=== PATIENT | male | born 1945 | race Caucasian/White ===

== ENCOUNTER 2016-09-12 16:00 | Inpatient (IN) | payer OTHER, MEDICARE ==
[~2016-09-12] VITALS: Ht 182.9 cm; Wt 72.2 kg
[2016-09-12 16:14] VITALS: BP 123/86; PULSE 54; RESP 16; O2SAT 92
[2016-09-12] MEDS ORDERED: 0.9% Sodium Chloride 1,000 ML IV ONE (17:42)
[2016-09-12] MEDS ORDERED: Piperacillin-Tazo 3.375 Gm Inj 3.375 GM in Dextrose 5% Minibag Plus 50 ML IV ONE (17:45)
--- NOTE | 2016-09-12 17:53 | ED.REPORT ---
HPI- Male Date of Service September 12, 2016 ED Provider: Micheal Frost MD Patient is a 71 year old male who presents to the ED after being referred by [facility] (Dr. Bennett) after being diagnosed with acutely symptomatic colovesical fistula to be admitted by hospitalist with a general surgery consult. Dr. Bennett already spoke with Александр Vivas. Associated symptoms include dysuria, fever (last fever 5 days ago, highest 103), and fecal matter coming out of his urethra. He denies vomiting, flank pain, or any other symptoms. He has been taking Azo to treat his symptoms. He was seen at [facility] 5 days ago. He has reduced his daily medications to bisoprolol, benzamine, amlodipine, and Vicodin. He was started on cefuroxime on 09/07. Nursing Notes Stated Complaint: POSS BLADDER/COLON INFECTION Chief Complaint: General Complaint Nursing Notes Reviewed: Yes Allergies: Coded Allergies: No Known Allergies (Unverified , 09/12/16) Scheduled Amlodipine (Amlodipine) 5 Mg Tablet 5 MG PO TID Benazepril (Benazepril) 10 Mg Tablet 10 MG PO TID Bisoprolol Fumarate (Bisoprolol Fumarate) 5 Mg Tablet 5 MG PO QAM Cefuroxime Axetil (Cefuroxime) 500 Mg Tablet 500 MG PO BIDWM Clonidine (Clonidine) 0.1 Mg Tablet 0.3 MG PO HS Phenazopyridine (Azo Standard) 97.5 Mg Tablet 195 MG PO Q2H TAKING Q2H SCHEDULED FOR PAIN W/ URINATION Pramipexole Dihydrochloride (Mirapex) 0.125 Mg Tablet 0.375 MG PO HS Zolpidem ER (Zolpidem ER) 12.5 Mg Tablet 12.5 MG PO HS SCHEDULED Scheduled PRN Carisoprodol (Carisoprodol) 350 Mg Tablet 350 MG PO HS PRN PRN Insomnia Dexamethasone Liquid (Dexamethasone Liquid) 0.5 Mg/5 Ml Elixir 0.5 MG PO DAILY PRN PRN MOUTH SORES SWISH AND SPIT Doxepin (Doxepin) 25 Mg Capsule 25 MG PO HS PRN PRN For Insomnia Hydrocodone-Acetaminophen 5-325 mg (Hydrocodone-Acetaminophen 5-325 mg) 1 Each Tablet 1 TABLET PO Q4H PRN PRN For Pain Metronidazole (Metronidazole Gel) 45 Gm Gel..gram. 1 APPLIC TOP DAILY PRN PRN ROSACEA TO TIP OF NOSE General Time Seen by MD: 17:41 Chief Complaint Other (Urinary problem) Hx Obtained From: Patient Arrived By: Walk-in Recent Healthcare: Recent doctor visit Past Medical History Past Medical History Notes: Dr. Nixon PCP Past Medical History Chronic back pain Reduced kidney function Recurrent bladder infections Reports: Hypertension, Denies: Asthma, COPD, Cancer, Congestive heart failure, Coronary artery disease , Diabetes mellitus, Stroke Past Surgical History colonoscopy with polyp removal Smoking History Never Smoker Ambulatory Status Independent Review of Systems Review of Systems Note: +fecal matter in urine Constitutional: Reports: Fever GI: Denies: Vomiting Male: Reports Dysuria, Denies Flank pain Complete sys rev & neg: except as marked. Physical Exam Initial Vital Signs Vital Signs (First) Date Time Temp Pulse Resp B/P Pulse Ox O2 Delivery O2 Flow Rate FiO2 09/12/16 16:14 37.0 54 16 123/86 92 Room Air General/Constitutional: Well-developed, Well-nourished Head / Eyes: Atraumatic, Normocephalic Neck: Full range of motion Respiratory: Breath sounds normal, Clear to auscultation, No respiratory distress Cardiovascular: Regular rate & rhythm, Heart sounds normal Abdomen / GI: Soft, Non-tender Skin: Warm, Dry Neurologic: Alert, Oriented, Nonfocal Psychiatric: Mood/affect normal, Behavior normal, Normal thought content Exam deferred Lower Extremity / Pelvis / MS: No edema Interpretation & Diagnostics Lab Results Interpretation Result Diagram: 09/12/16 1754 09/12/16 1754 Test 09/12/16 17:54 White Blood Count 6.5th/mm3 (3.8-10.1) Red Blood Count 4.99mil/mm3 (4.40-5.80) Hemoglobin 15.3g/dL (13.8-17.2) Hematocrit 46.6% (41.0-50.0) Mean Corpuscular Volume 93.4fL (81-100) Mean Corpuscular Hemoglobin 30.7pg (27.0-35.0) Mean Corpuscular Hemoglobin Concent 32.8% (32.0-37.0) Red Cell Distribution Width 15.1% (12.3-15.4) Platelet Count 266bil/L (150-400) Neutrophils (%) (Auto) 63.0% (40-74) Lymphocytes (%) (Auto) 20.3% (14-46) Monocytes (%) (Auto) 14.3% (4-12) Eosinophils (%) (Auto) 1.4% (0-5) Basophils (%) (Auto) 0.5% (0-3) Urine Color Dark yellow (YELLOW) Urine Appearance Cloudy (CLEAR,HAZY) Urine pH 7.0 (5.0-8.0) Urine Specific [place] 1.010 (1.003-1.035) Urine Protein 300mg/dL (NEG,TRACE) Urine Glucose (UA) 250mg/dL (NEGATIVE) Urine Ketones Tracemg/dL (NEGATIVE) Urine Occult Blood Large (NEGATIVE) Urine Nitrite Positive (NEGATIVE) Urine Bilirubin Moderate (NEGATIVE) Urine Ictotest Positive (Negative) Urine Urobilinogen 8.0mg/dL (NORMAL) Urine Leukocyte Esterase Large (NEGATIVE) Urine RBC 3-10/hpf (0-2) Urine WBC 6-10/hpf (0-5) Urine Epithelial Cells None/hpf (NONE-MOD) Urine Crystals None seen (NONE SEEN) Urine Bacteria Few/hpf (NONE-FEW) Urine Hyaline Casts None/lpf (NONE) Urine Granular Casts None seen (NONE SEEN) Urine Waxy Casts None seen (NONE SEEN) Urine Red Blood Cell Casts None seen (NONE SEEN) Urine White Blood Cell Casts None seen (NONE SEEN) Urine Mucus None seen (None Seen) Urine Trichomonas None seen (NONE SEEN) Urine Yeast None (NONE SEEN) Urinalysis Comment None Urine Culture Reflexed Indicated Sodium Level 138mEq/L (134-144) Potassium Level 3.8mEq/L (3.5-5.2) Chloride Level 99mEq/L (97-108) Carbon Dioxide Level 18mmol/L (18-29) Blood Urea Nitrogen 21mg/dL (8-27) Creatinine 1.15mg/dL (0.76-1.27) Estimat Glomerular Filtration Rate 66mL/min (>59) Glucose Level 78mg/dL (60-99) Lactic Acid Level 1.1mmol/L (0.4-2.0) Calcium Level 9.5mg/dL (8.5-10.1) Magnesium Level 1.9mg/dL (1.6-2.6) Total Bilirubin 0.5mg/dL (0.0-1.2) Aspartate Amino Transf (AST/SGOT) 27U/L (0-50) Alanine Aminotransferase (ALT/SGPT) 18U/L (0-44) Alkaline Phosphatase 58U/L (25-160) Troponin T < 0.010ug/L (0.0-0.011) Total Protein 7.0g/dL (6.4-8.4) Albumin 3.5g/dL (3.4-5.0) Lab Results Interpretation: XRAY CHEST: 1vw, portable, interp. by radiologist IMPRESSION: No acute process. Dictated by: Ramon Davies M.D. on 09/12/2016 at 18:42 Approved by: Ramon Davies M.D. on 09/12/2016 at 18:43 ECG Interpretation ECG Interpretation: Sinus rate 78 PVC Time: 18:17 Interpreted by: ED physician Re-Eval/Medical Decision Re-Evaluation/Progress : Time of Eval: 19:59 Re-Evaluation/Progress Note: Rechecked pt. Discussed plan for admission. Patient understands and agrees with plan. All questions addressed at this time. Consultation #1: Referral / Consult Name: Александр Vivas MD Consulted With: Surgeon Call Returned at: 19:48 Human Resources Advisor: Agrees with eval, Agrees with plan Note: Discussed pt case. Should contact hospitalist. Will consult. Consultation #2: Referral / Consult Name: Thiago Grissom MD Call Returned at: 19:51 Human Resources Advisor: Agrees with eval, Agrees with plan Note: Discussed pt case with GI. Pt may have clear liquids and should colon prep over night. Will consult. Consultation #3: Referral / Consult Name: Sabrina Solares DO Consulted With: Hospitalist Call Returned at: 20:04 Human Resources Advisor: Will see patient, Agrees with eval, Agrees with plan, Accepts admit Note: Discussed pt case. Accepts admit. Counseled Regarding: Diagnosis, Lab results, Need for admission Discharge & Departure Impression: Primary Impression: [place]-vesical fistula Disposition: ADMITTED TO HOSPITAL Discharge Condition All VS Reviewed: Yes Condition: Stable Referrals: OTHER,PHYSICIAN (PCP) Scribe Attestation Portions of this note were transcribed by Teo Tate. IDr. Frost personally performed the history, physical exam and medical decision-making; I reviewed and confirmed the accuracy of the information in the transcribed note. Signed by: Teo Tate 09/12/162007 Micheal Frost MD September 12, 2016 17:53 TEO TATE September 12, 2016 18:00
[2016-09-12 18:15] LABS: BASOPHILS % (AUTO) 0.5 % (0-3); EOSINOPHILS % (AUTO) 1.4 % (0-5); MONOCYTES % (AUTO) 14.3 % (4-12); Mean Corpuscular Hemoglobin 30.7 pg (27.0-35.0); Mean Corpuscular Volume 93.4 fL (81-100); Platelet Count 266 bil/L (150-400)
[2016-09-12 18:34] LABS: APPEARANCE,URINE CLOUDY (CLEAR,HAZY); COLOR,URINE DARK YELLOW (YELLOW); OCCULT BLOOD,URINE LARGE (NEGATIVE)
[2016-09-12 18:35] LABS: ICTOTEST,URINE POSITIVE (Negative)
[2016-09-12 18:38] VITALS: BP 124/61; PULSE 82; RESP 20; O2SAT 93
--- NOTE | 2016-09-12 18:46 | DRSVH ---
PROCEDURE: X-RAY CHEST ONE VIEW, PORTABLE ([id number]) INDICATIONS: sepsis TECHNIQUE: One view of the chest was acquired. COMPARISON: [facility], , CHEST 2 VIEW, 07/22/2016, 12:11. FINDINGS: Surgical changes and devices: None. Lungs and pleura: No pleural effusions or pneumothorax. Lungs are clear. Mediastinum: Mediastinal contours appear normal. Heart size is normal. Bones and chest wall: No suspicious bony lesions. Overlying soft tissues appear unremarkable. IMPRESSION: No acute process. Dictated by: Ramon Davies M.D. on 09/12/2016 at 18:42 Approved by: Ramon Davies M.D. on 09/12/2016 at 18:43
[2016-09-12 18:49] LABS: Magnesium 1.9 mg/dL (1.6-2.6)
[2016-09-12 18:58] LABS: TROPONIN T < 0.010 ug/L (0.0-0.011)
[2016-09-12] MEDS ORDERED: Phenazopyridine 97.5 mg Tablet PO ONE (19:55)
[2016-09-12] MEDS ORDERED: CEFU500T61 PO (20:08)
[2016-09-12] MEDS ORDERED: METR45GE11 TOP (20:08)
[2016-09-12] MEDS ORDERED: SOMA350 PO (20:09)
[2016-09-12] MEDS ORDERED: DEXA0.5E2 PO (20:09)
[2016-09-12] MEDS ORDERED: NC8176 PO (20:09)
[2016-09-12] MEDS ORDERED: HYDR-4003 PO (20:12)
[2016-09-12] MEDS ORDERED: DXPN25C PO (20:12)
[2016-09-12] MEDS ORDERED: PRAM0.122 PO (20:12)
[2016-09-12] MEDS ORDERED: ZOLP12.547 PO (20:12)
[2016-09-12] MEDS ORDERED: CLON0.1T PO (20:14)
[2016-09-12] MEDS ORDERED: PHEN97.5 PO (20:14)
[2016-09-12] MEDS ORDERED: BISO5TAB2 PO (20:14)
[2016-09-12] MEDS ORDERED: AMLO5TAB2 PO (20:14)
[2016-09-12] MEDS ORDERED: Alum-Mag Hydrox-Simeth 30 mL Suspension PO PRN (20:20)
[2016-09-12] MEDS ORDERED: Ondansetron 2 mg/mL 2 mL Inj IVPUSH PRN (20:20)
[2016-09-12] MEDS ORDERED: Polyethylene Glycol (PEG) 17 Gm Powder PO PRN (20:20)
[2016-09-12 20:40] VITALS: BP 132/59; PULSE 90; O2SAT 92
[2016-09-12] MEDS ORDERED: PEG/Electrolytes 4,000 mL Solution PO ONE (20:44)
[2016-09-12] MEDS ORDERED: Phenazopyridine 97.5 mg Tablet PO SCH ×2 (21:45→23:26)
--- NOTE | 2016-09-12 21:45 | PCM.HPMED ---
Subjective Date of Service September 12, 2016 Primary Provider: Admitting Physician: Primary Care Physician: Other,Physician Attending Physician: Admit Status: From the Emergency Department, Remote Telemetry Chief Complaint: possible bladder/colon infection History of Present Illness: Patient is a 71 year old male who presents to the ED after being referred by [facility] (Dr. Bennett) being diagnosed with acutely symptomatic colovesical fistula to be admitted for a general surgery consult/GI consultation. Dr. Bennett has already spoke with Dr. Александр Vivas. Associated symptoms include worsening dysuria over the past 5 days, fever (highest 103), and fecal matter coming out of his urethra. He denies vomiting, flank pain, chills or any other symptoms. He has been taking Azo to treat his symptoms. He was seen at [facility] 5 days ago, and was urged to contact his PCP (Dr. Francesco Nixon in [place]), who started patient's cefuroxime on 09/07. He has reduced his daily medications to bisoprolol, benzamine, amlodipine, and Vicodin. In the ED, vitals T37.2, P90, BP132/59, 92% on RA. Normal labs WBC 6.5, lactic acid 1.1. UA with positive nitrite, leukocytes, and occult blood. Dr. Moctezuma has been contacted and plans colonoscopy for tomorrow. Patient is being admitted for colonoscopy and further treatment for his fistula. Review of Systems: A comprehensive review of systems has been conducted with the patient and found to be negative except what is mentioned in the HPI. Allergies Coded Allergies: No Known Allergies (Unverified , 09/12/16) Home Medications Amlodipine 5 mg by mouth 3 times a day Benzagel 10 mg by mouth 3 times a day Bisoprolol fumarate 5 mg by mouth every morning Carisoprodol 350 mg by mouth at bedtime when necessary insomnia Cefuroxime 500 mg by mouth twice a day with meals Clonidine 0.3 mg by mouth at bedtime Dexamethasone liquid 0.5 mg per 5 mL elixir 0.5 mg by mouth daily when necessary for mouth sores swish and spit Doxepin 25 mg by mouth at bedtime when necessary for insomnia Metronidazole 45 g gel apply topical daily as needed for Nathaly fascia to tip of nose Phenazopyridine 195 mg by mouth every 2 hours for pain with urination Pramipexole 0.375 mg by mouth at bedtime Zolpidem 12.5 mg by mouth daily at bedtime Clonazepam 1.5 mg by mouth at bedtime as needed for insomnia (per patient report ) PMH Chronic back pain Reduced kidney function Recurrent bladder infections Hypertension, Surgical History colonoscopy with polyp removal 2 years ago Left knee replacement Cervical fusion Denies abdominal surgery Family History Both grandfathers of heart attack in her 80s Grandmother on paternal side with diabetes Social History Hx Alcohol Use: Yes (2x daily wine) Hx Substance Use: No Hx Tobacco Use: Yes Smoking Status: Former Smoker (20.-pack-year history quit 30 years ago) Living Arrangement: with Family (local resident near [place]) Exam Vital Signs Vital Sign - Last Date Time Temp Pulse Resp B/P Pulse Ox O2 Delivery O2 Flow Rate FiO2 09/12/16 18:38 36.9 82 20 124/61 93 Room Air Exam General: Awake and alert, in no acute distress HEENT: NC/AT, PERRL, no sclera icterus, moist mucous membranes Neck: Supple, Non-tender, Full range of motion, no lymphadenopathy LUNGS: CTAB CV: Regular with normal S1,S2, Heart sounds normal, Intact radial, dorsal pedis pulses ABD: Soft, non-tender, no guarding or rebound. hyperactive bowel tones Extremities: No edema Skin: Warm, Dry, No cyanosis Neuro: Alert, Oriented, Nonfocal Psychiatric: Mood/affect normal, Behavior normal, Normal thought content : Deferred Lab and Diagnostics Result Diagram: 09/12/16 1754 09/12/16 175 X-Rays, CTs and MRIs XRAY CHEST: 1vw, portable, interp. by radiologist IMPRESSION: No acute process. Dictated by: Ramon Davies M.D. on 09/12/2016 at 18:42 Approved by: Ramon Davies M.D. on 09/12/2016 at 18:43 12-lead ECG Sinus rate 78 PVC Time: 18:17 Interpreted by: ED physician Assessment & Plan Patient is a 71 year old male who presents to the ED after being referred by [facility] (Dr. Bennett) diagnosed with acutely symptomatic colovesical fistula to be admitted for general surgery consult. Dr. Bennett already spoke with Dr. Александр Vivas. He was started on cefuroxime on 09/07. Colovesical fistula, present on admission. Acute. - confirmed by (urology), Dr. Vivas (surgery) and Dr. Hodge ( GI) following - plans for coloscopy tomorrow, bowel prep started - clear liquid diet - UCx pending - Continue cefuroxime antibiotics - continue phenazopyridine as needed Chronic issues: Hypertension - Continue home meds; amlodipine and benazepril Chronic back pain - Continue home meds; Vicodin as needed Insomnia - Continue home meds; Ambien, clonidine and clonazepam when necessary Restless leg syndrome - Continue home meds; pramipexole and carisoprodol when necessary Rosacea Patient status: Patient was admitted under inpatient status with expected length of stay greater than to midnights due to severity of presenting symptoms , risk of adverse event, and complexity of treatment plan. Pain Evaluation: Adequate Pain Control GI Prophylaxis: Not indicated VTE Prophylaxis: Sub-Q Heparin (Unfractionated) Resuscitation Status: CPR: Attempt Resuscitation Attending Statement The patient was seen and examined together with house staff on 09/13/2016 and I agree with the history, exam and plan as outlined in the note above. Jona Ferreira DO September 12, 2016 20:15 Sabrina Solares September 13, 2016 04:31
[2016-09-12 21:50] VITALS: BP 147/99; PULSE 74; RESP 20; O2SAT 97
[2016-09-12] MEDS ORDERED: cloNIDine 0.1 mg Tablet PO SCH (22:37)
[2016-09-12] MEDS ORDERED: BISOPROLOL FUMARATE 5 MG PO SCH (22:38)
--- NOTE | 2016-09-12 23:35 | CONS ---
[address] [address] CONSULTATION REPORT PATIENT: CAMMY ROMEO : 1945 MR#: [id number] ADMIT: 09/12/2016 JOB ID: [id number] DATE OF SERVICE: 09/12/2016 CHIEF COMPLAINT: Colovesical fistula. HISTORY OF PRESENT ILLNESS: The patient is a 71-year-old male who was referred to the emergency department today due to a colovesical fistula. The patient has been having fevers and chills for the past week. This is followed by extreme pain with urination, changes in his urine stream, urgency of urination and frequency of urination, passing air in his urine and also having sediment or particulate matter in his urine over the past week. He denies any significant abdominal pain except for pain in his penis with urination. Due to this problem, he went to [facility] approximately four days ago and he was worked up with a CT scan of the abdomen and pelvis which suggests a colovesical fistula between the sigmoid colon and anterior dome of the bladder. His PCP Dr. Nixon started him on p.o. antibiotics after consultation with Dr. Bennett. The patient was seen by Dr. Bennett in the office today and I believe Dr. Bennett did a cystoscopy today and subsequently referred him to the emergency department. Urine cultures from September 07 grew out Proteus and E. coli greater than 100,000 organisms per cc. The patient is not toxic-appearing. I am not sure of the findings from today's cystoscopy. PAST MEDICAL HISTORY: Colonoscopy at [facility] approximately two or three years ago with findings of polyps and diverticulosis. Joint pains, broken right leg, left knee replacement, neck fusion surgery, hypertension and high cholesterol. MEDICATIONS: 1. Amlodipine. 2. Benazepril. 3. Bisoprolol. 4. Cefuroxime. 5. Clonidine. 6. Doxepin. 7. Mirapex. 8. Zolpidem. ALLERGIES: None. SOCIAL HISTORY: The patient lives in [place]. He is . He has a son and a daughter. He is retired. 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 He quit smoking 30 years ago. FAMILY HISTORY: Positive for heart disease and diabetes. REVIEW OF SYSTEM: Shows fevers and chills. No abdominal pain. No nausea, vomiting. He has been having extreme pain with urination and changes in his urination habits. PHYSICAL EXAMINATION: The patient is currently on the emergency department [facility] in no acute distress. His BMI is 23. Temperature is 36.9, blood pressure 134/61, pulse is 82, respirations 20. Head is normocephalic, atraumatic. There is no scleral icterus. Neck is supple. Heart is regular rate. Lungs are clear. Abdomen is nondistended. It is rather soft and no specific tenderness with deep palpation even in the suprapubic location. There is no left lower quadrant tenderness either. The patient points to his entire penis as the site of his discomfort when he urinates. Extremities show no clubbing and no cyanosis. Neurologically, he is awake and alert and follows commands. LABORATORY EXAMINATION: Today shows a white blood count of 6.5, hematocrit 46.6, platelet count is 266. Sodium is 138, potassium 3.8, creatinine 1.15, lactate is 1.1, total bilirubin is 0.5, albumin is 3.5. His urinalysis today shows positive urine nitrites and large leukocyte esterase. The CT scan report from [facility] dated September 08, 2016 demonstrates findings consistent with a colovesical fistula between the sigmoid colon and anterior dome of the bladder. Associated segmental wall thickening of the sigmoid colon and concentric wall thickening of the bladder are consistent with colitis and cystitis. Again, his urine cultures from September 07 show growth of Proteus and E. coli. ASSESSMENT: This is a 71-year-old male with a symptomatic colovesical fistula. The case has been discussed with the GI service who recommends having the patient undergo a bowel prep tonight in order to undergo a colonoscopy tomorrow. I have explained to the patient that he is likely to require surgical intervention in terms of a sigmoid resection with takedown of the colovesical fistula either with primary anastomosis or with a colostomy. The patient should remain on antibiotics for his urinary tract infection. I will follow the patient along with you.
[2016-09-13 00:05] VITALS: BP 152/91; PULSE 85; RESP 16; O2SAT 93
[2016-09-13] MEDS: HYDROcodone-APAP 5-325 mg Tablet PO PRN ×2 (00:13→06:01)
[2016-09-13] MEDS: Heparin 5,000 Unit/mL Inj SUBQ SCH ×2 (00:14→09:04)
[2016-09-13 03:12] VITALS: BP 121/77; PULSE 74; RESP 18; O2SAT 93
--- NOTE | 2016-09-13 05:16 | NUR ---
Admit to 1027 Arrived from ED at 2130, ambulated with steady gait to room, alert and fully oriented. Currently passing stool through urethra, reports extreme pain during urination. Pt has been taking phenazopyridine Q2 hours for penile pain; Md authorized no more than Q4 hour dosing with half amount for comfort. Taking colon prep with good output, finally able to report passing stool from rectum which has not happened for several days; concurrent reduction in stool through urethra. Pt has been NPO since stopping colon prep in case surgery will proceed today. Oriented to hospital routines, plan of care; hourly rounding ongoing.
[2016-09-13] MEDS: Phenazopyridine 97.5 mg Tablet PO SCH ×3 (06:01→12:30)
[2016-09-13 06:55] LABS: BASOPHILS % (AUTO) 0.4 % (0-3); EOSINOPHILS % (AUTO) 0.9 % (0-5); MONOCYTES % (AUTO) 14.5 % (4-12); Mean Corpuscular Hemoglobin 30.7 pg (27.0-35.0); Mean Corpuscular Volume 95.3 fL (81-100); NEUTROPHILS % (AUTO) 66.2 % (40-74); Platelet Count 282 bil/L (150-400)
[2016-09-13 08:04] LABS: INR 1.1 ratio
[2016-09-13] MEDS ORDERED: Sodium Chloride LOK Flush 10 mL Syringe IV SCH (08:30)
[2016-09-13] MEDS ORDERED: cefTRIAXone Inj 2,000 MG in Dextrose 5% Minibag Plus 50 ML IV SCH (08:30)
[2016-09-13 08:36] VITALS: BP 123/75; RESP 18; O2SAT 94
--- NOTE | 2016-09-13 09:42 | PCM.PNSURG ---
Subjective Visit Information: Reason for Visit Intracystic Fistula Surgery/Surgery Date Post-Op Day # Date of Admission: September 12, 2016 at 20:16 Hospital Day # Subjective: pt tolerated overnight bowel prep, waiting for colonoscopy; pain with urination seems a little better Objective Objective Awake in bed Abd: soft nontender Vital Sign- Last 8 Hours Date Time Temp Pulse Resp B/P Pulse Ox O2 Delivery O2 Flow Rate FiO2 09/13/16 08:36 36.7 18 123/75 94 Room Air 09/13/16 03:12 36.8 74 18 121/77 93 Room Air Intake and Output- Last 8 Hour 09/13/16 Cumulative From/Thru 07:00 09/12/16 16:14 - 09/13/16 06:41 Intake Total 2000 ml 3000 ml Balance 2000 ml 3000 ml Intake Oral 2000 ml 2000 ml IV Total 1000 ml # Voids 5 5 # Bowel Movements 7 7 Result Diagram: 09/13/16 0605 09/13/16 0605 Assessment & Plan Impression Likely colovesical fistula Awaiting for colonoscopy today Problems: Plan Surgical options discussed with pt, and pt seems interested in finding a colo- rectal surgeon in [place] or [place] to minimize his risk of having a colostomy Will re-visit after his colonoscopy is done. Continue abx for UTI. VTE Prophylaxis: Sub-Q Heparin (Unfractionated) Resuscitation Status: CPR: Attempt Resuscitation Александр Vivas MD September 13, 2016 09:42
[2016-09-13] MEDS ORDERED: 0.9% Sodium Chloride 250 ML ONE (10:15)
--- NOTE | 2016-09-13 10:25 | PCM.CHPMED ---
Subjective Date of Service: September 13, 2016 Primary Physician: Admitting Physician: Sabrina Solares DO Primary Care Physician: Other,Physician Attending Physician: Sabrina Solares DO Chief Complaint: Chief Complaint: Colovesical fistula History of Present Illness: GI consult note 71-year-old male with history of multiple colonoscopies with polyp removals, last being 2 years ago with polypectomy, presents to the ED by referral from Dr. Bennett [facility]rology due to UTI with Proteus and Escherichia coli second 2 acutely symptomatic colovesical fistula identified on CT and [facility]. Patient states that this started on September 05 with fever and chills. The next day or 2 the patient began having very painful urination with increased sediment. He presented to [facility] where he culture was obtained current Proteus and Escherichia coli, as well as obtaining the CT which showed a colovesical fistula. Dr. Nixon placed the patient on cefuroxime and consulted with Dr. Bennett who performed a cystoscopy yesterday , leading him to refer the patient to [facility] emergency department. Patient states that he continues to have urinary symptoms but fever and chills and other signs of systemic infection are no longer apparent. GI was asked to consult the patient for colonoscopy bleeding up to possible surgical options for closure of the fistula. Dr. Wily Vivas has seen the patient and given recommendations and his notes are in the chart. It appears that the patient may want to go to a colorectal surgeon in [place] or [place] if it is determined that he will need an ostomy. Patient completed GoLYTELY earlier this morning. Review of Systems: See history of present illness PMH Past Medical History Chronic back pain Reduced kidney function Recurrent bladder infections Hypertension Hx Any Other Health Problems?: NoHx Diabetes: No Surgical History colonoscopy with polyp removal 2 years ago Left knee replacement Cervical fusion Denies abdominal surgery Home Medications Amlodipine 5 mg by mouth 3 times a day Benzagel 10 mg by mouth 3 times a day Bisoprolol fumarate 5 mg by mouth every morning Carisoprodol 350 mg by mouth at bedtime when necessary insomnia Cefuroxime 500 mg by mouth twice a day with meals Clonidine 0.3 mg by mouth at bedtime Dexamethasone liquid 0.5 mg per 5 mL elixir 0.5 mg by mouth daily when necessary for mouth sores swish and spit Doxepin 25 mg by mouth at bedtime when necessary for insomnia Metronidazole 45 g gel apply topical daily as needed for Nathaly fascia to tip of nose Phenazopyridine 195 mg by mouth every 2 hours for pain with urination Pramipexole 0.375 mg by mouth at bedtime Zolpidem 12.5 mg by mouth daily at bedtime Clonazepam 1.5 mg by mouth at bedtime as needed for insomnia (per patient report ) Allergies: Coded Allergies: No Known Allergies (Unverified , 09/12/16) Family History Family History Both grandfathers of heart attack in her 80s Grandmother on paternal side with diabetes Social History Hx Alcohol Use: Yes (2x daily wine)Hx Substance Use: NoHx Tobacco Use: Yes Smoking Status: Former Smoker Living Arrangement: with Family (local resident near [place]) Exam Vital Signs Vital Sign - Last Date Time Temp Pulse Resp B/P Pulse Ox O2 Delivery O2 Flow Rate FiO2 09/13/16 08:36 36.7 18 123/75 94 Room Air 09/13/16 03:12 74 Intake and Output 09/12/16 09/12/16 09/13/16 Cumulative From/Thru 15:00 23:00 07:00 09/12/16 16:14 - 09/13/16 06:41 Intake Total 1000 ml 2000 ml 3000 ml Balance 1000 ml 2000 ml 3000 ml Intake Oral 2000 ml 2000 ml IV Total 1000 ml 1000 ml # Voids 5 5 # Bowel Movements 7 7 General: Alert, Oriented X3, Cooperative, No Acute Distress Head: Normal Eyes: PERRLA, Scleral Anicteric Mouth: Mucous Membr Moist/[place] Neck: Supple Chest & Lungs: Chest Wall Normal, Clear to auscultation & percussion Cardiovascular: Exam Unremarkable, Regular Rate/Rhythm, No Murmurs/Rubs/Gallops Abdomen: Non-tender, Non-distended, Normoactive bowel tones Musculoskeletal: Unremarkable, Normal Range of Motion Extremities: No cyanosis/clubbing/edma bilat Neurological: Grossly Neurologically Intact Lab and Diagnostics Result Diagram: 09/13/1660409/13/16604 Assessment & Plan Assessment 71-year-old male diagnosed with a colovesical fistula who presented with UTI with Proteus and Escherichia coli. Complete review of patient's history with the patient does not identify prior surgical interventions in the lower pelvis. The patient has had 2 colonoscopies with polypectomies including one 2 years ago with fever and chills post procedure. At that time the patient was placed on antibiotics with resolution, without identification of any abscess. He denies ever having additional rectal pain, abdominal pain, hematochezia. He also has no history of Crohn's disease or diverticulitis, and currently do not know if the CT at [facility] identified any additional masses. Has a history of recurrent UTIs that suggests that this may have been present for some time. Today patient scheduled for colonoscopy and he has completed the prep. After colonoscopy we will discuss with surgical team about the findings and discuss treatment going forward. Thank you for allowing us to participate in the care of this patient Problems: Pain Evaluation: Adequate Pain Control GI Prophylaxis: Not indicated VTE Prophylaxis: Sub-Q Heparin (Unfractionated) VTE Mechanical Devices: Intermittant Pneumatic CD Resuscitation Status: CPR: Attempt Resuscitation Attending Statement Pt seen and examined agree with Dr Donaldson(resident physician) note above plan for colonoscopy to evaluate for colo-vesical fistula. Avila Donaldson DO September 13, 2016 10:25 Thiago Grissom MD September 18, 2016 10:00
--- NOTE | 2016-09-13 11:24 | PCM.PNMED ---
Subjective Date of Service September 13, 2016 Subjective pt denied n/v/abdominal pain afebrile, HD stable Exam Vital Signs Vital Sign - Last Date Time Temp Pulse Resp B/P Pulse Ox O2 Delivery O2 Flow Rate FiO2 09/13/16 08:36 36.7 18 123/75 94 Room Air 09/13/16 03:12 74 Intake and Output 09/12/16 09/12/16 09/13/16 Cumulative From/Thru 15:00 23:00 07:00 09/12/16 16:14 - 09/13/16 06:41 Intake Total 1000 ml 2000 ml 3000 ml Balance 1000 ml 2000 ml 3000 ml Intake Oral 2000 ml 2000 ml IV Total 1000 ml 1000 ml # Voids 5 5 # Bowel Movements 7 7 Exam NAD, comfortably laying down on the bed no JVD, MMM, no LAD RRR, nl s1, s2 no mrg CTAB, no w,c S,ND,NT,normoactive BS+ warm, no edema, pulses 2/2 IVs and Medications Medications Reviewed: Medications were reviewed in detail Lab and Diagnostics Result Diagram: 09/13/1660409/13/16 06 X-Rays, CTs and MRIs XRAY CHEST: 1vw, portable, interp. by radiologist IMPRESSION: No acute process. Dictated by: Ramon Davies M.D. on 09/12/2016 at 18:42 Approved by: Ramon Davies M.D. on 09/12/2016 at 18:43 12-lead ECG Sinus rate 78 PVC Time: 18:17 Interpreted by: ED physician Assessment & Plan Patient is a 71 year old male who presents to the ED after being referred by [facility] Urology (Dr. Bennett) diagnosed with acutely symptomatic colovesical fistula to be admitted for general surgery consult. Dr. Bennett already spoke with Dr. Александр Vivas. He was started on cefuroxime on 09/07. acute, active Colovesical fistula, present on admission. Acute. confirmed by ( urology), Dr. Vivas (surgery) and Dr. Hodge (GI) following - plans for coloscopy today, - UCx pending, As per [facility]. final UCX 09/07 showed E.coli, Proteus, sensitive to quinolone, Amoxacilin, bactrim, Resistant to Macrobid -abx changed from Cefuroxime po to Ceftriaxone while in house, will continue ciprofloxacin or cefuroxime upon d/c - continue phenazopyridine as needed -appreciate GI, surgery input regarding dispo as pt seems interested in getting second opinion, needs to coordinate with PCP as well Chronic issues: Hypertension - Continue home meds; amlodipine and benazepril Chronic back pain - Continue home meds; Vicodin as needed Insomnia - Continue home meds; Ambien, clonidine and clonazepam when necessary Restless leg syndrome - Continue home meds; pramipexole and carisoprodol when necessary Rosacea dispo: pending Full code PCP: Francesco Nixon [phone] GI Prophylaxis: Not indicated VTE Prophylaxis: Sub-Q Heparin (Unfractionated) VTE Mechanical Devices: Intermittant Pneumatic CD Resuscitation Status: CPR: Attempt Resuscitation Time spent 35min Jesus Manuel Packer MD September 13, 2016 11:18
[2016-09-13 13:52] VITALS: BP 144/81; PULSE 75; RESP 18; O2SAT 94
--- NOTE | 2016-09-13 14:33 | NUR ---
Pre-Colonoscopy Pt has denied any pain today. Scheduled colonoscopy scheduled for 1500 today. Pt very anxious, wanting to speak with hospitalist about possibility of discharging home today after colonoscopy. Explained to patient that until we know of colonoscopy results, we cannot know for certain if this is a possibility. Cont to monitor.
--- NOTE | 2016-09-13 14:42 | NUR ---
Social Work: Initial Assessment/Readiness for Discharge. D: EMR reviewed. Pt is a 71 y/o male admitted for intracystic fistula per H&P. SW met with pt at bedside to conduct initial assessment. SW wrote phone number on white board in room. Pt was alert and oriented x3. Pt's insurance is [employer] and PCP is Francesco Nixon MD. Pt's primary contact is spouse Suzi Frederick ([phone]). Pt has not LTC or VA insurance. Pt has no SNF or HH Hx. Pt has completed DPOA/advanced directive and SW confirmed a copy is on pt's hard chart. Pt is independent with ADLs and does not use any DME. Pt drives. Pt is independent at baseline. Pt lives at home with his spouse in [place]. Pt will receive colonoscopy today at 1500. Pt stated "he is leaving after colonoscopy and is willing to sign release stating he is leaving against medical advice." SW encouraged pt to discuss plan to leave with RN and MD. SW informed RN of pt's statements. Pt is willing to inform RN when he is leaving and will not leave without informing medical staff. Pt confirmed his spouse will provide transport home via POV when pt leaves hospital. SW confirmed it was okay to call pt's spouse to discuss pt's plan to leave. SW placed T/C to spouse but spouse did not answer. SW does not anticipate any discharge needs at this time but will continue to follow if any needs arise after pt's colonoscopy. Pt to return home with via POV when he is ready. A: Pt who is independent at baseline. P: Pt to return home with spouse via POV when ready. No anticipated discharge needs at this time. SW will continue to follow if needs arise. NEFTALI Daugherty Addendum: 09/13/16 at 1454 by RAVINDRA HAAS Amended: Links added.
[2016-09-13] MEDS ORDERED: fentaNYL-PF 50 mCg/mL 2 mL Inj ONE (15:30)
[2016-09-13 15:37] VITALS: BP 149/90; PULSE 76; RESP 16; O2SAT 93
--- NOTE | 2016-09-13 15:47 | NUR ---
Scope procedure Patient is off unit for scope procedure at this time.
--- NOTE | 2016-09-13 17:22 | NUR ---
Back from procedure Patient is back from procedure, alert and awake. patient's asking r/t discharge. Paged Dr. Packer and awaiting call back.
--- NOTE | 2016-09-13 17:37 | NUR ---
AMA patient asking nurse to pull out the IV or ," i will leave with this in it." Nurse notified Dr. Royal and Dr. royal spoke to the patient. Dr. Royal aware patient left AMA and IV was removed with out any difficulty. Spouse also at bed side and states," he has left AMA before and he will do it again today." patient telling to get the AMA form and he will sign it. Nurse reviewed AMA form and reviewed the risk and benefits and patient states," I am leaving and i will sign the AMA paper." patient left unit 1740
--- NOTE | 2016-09-13 23:34 | ENDO ---
[address] [address] ENDOSCOPY PROCEDURE PATIENT: CAMMY ROMEO : 1945 MR#: [id number] ADMIT: 09/12/2016 JOB ID: [id number] DATE OF PROCEDURE: PROCEDURE: Colonoscopy. INDICATION: Suspected colovesical fistula. MISCELLANEOUS: The patient's ASA classification is II. Mallampati score is 2. MEDICATIONS: 1. Versed 5 mg. 2. Fentanyl 75 mcg. PREPARATION QUALITY: Good. PROCEDURE DETAILS: After informed consent was obtained, the patient was brought into the GI suite, where he was placed on oxygen via nasal cannula and monitored with continuous pulse oximeter, telemetry, and blood pressure monitoring. A time-out was performed. Then, he was placed in the left lateral decubitus position and medications were administered for sedation. Digital rectal exam with palpation of the prostate was performed which was unremarkable. The colonoscope was then inserted into the rectum and advanced under direct visualization to the terminal ileum, which was identified by the presence of the ileocecal valve and villous appearing mucosa of the terminal ileum. Once the terminal ileum was reached, the colonoscope was withdrawn back and the rectum, mucosa and lumen were examined. In the rectum, retroflexion was performed. Following retroflexion, remaining air in the rectum was suctioned and procedure was completed. FINDINGS: 1. In the ascending colon, starting from just distal to the ileocecal valve to approximately 70 cm, there were scattered areas of focal ulceration which were clean-based with exudate. These ulcers measured between 2-3 mm in size. There was also areas just of focal inflammation, as well as normal appearing colon mucosa. This was evident from just distal to the ileocecal valve to approximately 70 cm. From 70 cm to 40 cm the colon mucosa appeared unremarkable with normal vascular pattern. At 40 cm there were two focal areas of erythema and edema suggestive of inflammation. Multiple biopsies were obtained. 2. Scattered throughout the distal transverse colon and extending to the sigmoid colon there were numerous diverticula which were large and small mouthed. At around 60 cm the patient described the sensation that he was passing urine as well as air. This area was carefully examined. We went back and forth several times to see if we could identify any evidence of a fistula, however, none was appreciated. The colonoscope was then withdrawn back into the rectum, retroflexion was performed which revealed large internal hemorrhoids. IMPRESSION: 1. Focal ulcers and focal inflammation from the ascending colon to approximately 70 cm, and then again at 40 cm. 2. Left-sided diverticulosis. RECOMMENDATIONS: 1. Await biopsy results. 2. Consider MRI to further evaluate for evidence of colovesical fistula. 3. Consider holding Etodolac as these ulcers could be possibly NSAID induced colopathy. 4. Further plans as per the surgery team. COMPLICATIONS: None. ESTIMATED BLOOD LOSS: Less than 5 mL. MTDD
--- NOTE | 2016-09-14 11:27 | PCM.DC.MED ---
Discharge Summary Date of Service September 13, 2016 Dates of Hospitalization Date of Hospital Admission September 12, 2016 at 20:16 Date of Discharge: September 13, 2016 Providers: Admitting Physician: Sabrina Solares DO Primary Care Physician: Other,Physician Attending Physician: Sabrina Solares DO Diagnosis at Time of Discharge Diagnosis at Time of Discharge acute dx Colovesical fistula, Chronic dx Hypertension, Chronic back pain, c Insomnia, Restless leg syndrome, Consultations Gastroenterology Gen. surgery Procedures XRay, CTs & MRIs XRAY CHEST: 1vw, portable, interp. by radiologist IMPRESSION: No acute process. Dictated by: Ramon Davies M.D. on 09/12/2016 at 18:42 Approved by: Ramon Davies M.D. on 09/12/2016 at 18:43 ECG 12 Lead Sinus rate 78 PVC Time: 18:17 Interpreted by: ED physician Brief History HPI obtained by on 09/12 Patient is a 71 year old male who presents to the ED after being referred by [facility] Urology (Dr. Bennett) being diagnosed with acutely symptomatic colovesical fistula to be admitted for a general surgery consult/GI consultation. Dr. Bennett has already spoke with Dr. Александр Vivas. Associated symptoms include worsening dysuria over the past 5 days, fever (highest 103), and fecal matter coming out of his urethra. He denies vomiting, flank pain, chills or any other symptoms. He has been taking Azo to treat his symptoms. He was seen at walk in clinic of [facility] 5 days ago, and was urged to contact his PCP (Dr. Francesco Nixon in [place]), who started patient's cefuroxime on 09/07. He has reduced his daily medications to bisoprolol, benzamine, amlodipine, and Vicodin. In the ED, vitals T37.2, P90, BP132/59, 92% on RA. Normal labs WBC 6.5, lactic acid 1.1. UA with positive nitrite, leukocytes, and occult blood. Dr. Moctezuma has been contacted and plans colonoscopy for tomorrow. Patient is being admitted for colonoscopy and further treatment for his fistula. Hospital Course Patient is a 71 year old male who presents to the ED after being referred by [facility] Urology (Dr. Bennett) diagnosed with acutely symptomatic colovesical fistula to be admitted for general surgery consult. Dr. Bennett already spoke with Dr. Александр Vivas. He was started on cefuroxime on 09/07. acute dx Colovesical fistula,this was confirmed by (urology), Pt was not toxic looking, not septic, patient was initially continued cefuroxime from outpatient, switched to ceftriaxone. As per [facility]. final UCX 09/07 showed E.coli, Proteus, sensitive to quinolone, Amoxacilin, bactrim, Resistant to Macrobid. Patient underwent colonoscopy by Dr. Leblanc, which showed Focal ulcers and focal inflammation from the ascending colon to approximately 70 cm, and then again at 40 cm, Left-sided diverticulosis. Patient was also consulted by general surgery, Plan was to decide whether pt needs surgery or not after the colonoscopy. However, right after colonoscopy, patient left against medical advice, stated that he will get second opinion at [facility]. PCP, Francesco Nixon [phone], was consulted on the phone, coordinated with the patient. As per GI, pt was recommended to wait for biopsy result, possible MRI to further evaluate for evidence of colovesical fistula. Chronic dx Hypertension, Continued home meds; amlodipine and benazepril Chronic back pain, continued home meds; Vicodin as needed Insomnia, continue home meds; Ambien, clonidine and clonazepam when necessary Restless leg syndrome, continue home meds; pramipexole and carisoprodol when necessary Exam Vital Signs (Last) Date Time Temp Pulse Resp B/P Pulse Ox O2 Delivery O2 Flow Rate FiO2 09/13/16 15:37 36.8 76 16 149/90 93 Room Air Exam NAD, comfortably laying down on the bed no JVD, MMM, no LAD RRR, nl s1, s2 no mrg CTAB, no w,c S,ND,NT,normoactive BS+ warm, no edema, pulses 2/2 Test 09/12/16 17:54 09/13/16 06:05 09/13/16 07:30 Urine Color Dark yellow (YELLOW) Urine Appearance Cloudy (CLEAR,HAZY) Urine pH 7.0 (5.0-8.0) Urine Specific [place] 1.010 (1.003-1.035) Urine Protein 300mg/dL (NEG,TRACE) Urine Glucose (UA) 250mg/dL (NEGATIVE) Urine Ketones Tracemg/dL (NEGATIVE) Urine Occult Blood Large (NEGATIVE) Urine Nitrite Positive (NEGATIVE) Urine Bilirubin Moderate (NEGATIVE) Urine Ictotest Positive (Negative) Urine Urobilinogen 8.0mg/dL (NORMAL) Urine Leukocyte Esterase Large (NEGATIVE) Urine RBC 3-10/hpf (0-2) Urine WBC 6-10/hpf (0-5) Urine Epithelial Cells None/hpf (NONE-MOD) Urine Crystals None seen (NONE SEEN) Urine Bacteria Few/hpf (NONE-FEW) Urine Hyaline Casts None/lpf (NONE) Urine Granular Casts None seen (NONE SEEN) Urine Waxy Casts None seen (NONE SEEN) Urine Red Blood Cell Casts None seen (NONE SEEN) Urine White Blood Cell Casts None seen (NONE SEEN) Urine Mucus None seen (None Seen) Urine Trichomonas None seen (NONE SEEN) Urine Yeast None (NONE SEEN) Urinalysis Comment None Urine Culture Reflexed Indicated Lactic Acid Level 1.1mmol/L (0.4-2.0) Magnesium Level 1.9mg/dL (1.6-2.6) Total Bilirubin 0.5mg/dL (0.0-1.2) Aspartate Amino Transf (AST/SGOT) 27U/L (0-50) Alanine Aminotransferase (ALT/SGPT) 18U/L (0-44) Alkaline Phosphatase 58U/L (25-160) Troponin T < 0.010ug/L (0.0-0.011) Total Protein 7.0g/dL (6.4-8.4) Albumin 3.5g/dL (3.4-5.0) White Blood Count 7.6th/mm3 (3.8-10.1) Red Blood Count 4.72mil/mm3 (4.40-5.80) Hemoglobin 14.5g/dL (13.8-17.2) Hematocrit 45.0% (41.0-50.0) Mean Corpuscular Volume 95.3fL (81-100) Mean Corpuscular Hemoglobin 30.7pg (27.0-35.0) Mean Corpuscular Hemoglobin Concent 32.2% (32.0-37.0) Red Cell Distribution Width 15.4% (12.3-15.4) Platelet Count 282bil/L (150-400) Neutrophils (%) (Auto) 66.2% (40-74) Lymphocytes (%) (Auto) 17.7% (14-46) Monocytes (%) (Auto) 14.5% (4-12) Eosinophils (%) (Auto) 0.9% (0-5) Basophils (%) (Auto) 0.4% (0-3) Sodium Level 147mEq/L (134-144) Potassium Level 4.1mEq/L (3.5-5.2) Chloride Level 107mEq/L (97-108) Carbon Dioxide Level 21mmol/L (18-29) Blood Urea Nitrogen 18mg/dL (8-27) Creatinine 1.26mg/dL (0.76-1.27) Estimat Glomerular Filtration Rate 60mL/min (>59) Glucose Level 78mg/dL (60-99) Calcium Level 9.5mg/dL (8.5-10.1) Prothrombin Time 11.8sec (8.1-12.5) Prothromb Time International Ratio 1.10ratio Discharge Medications Discharge Medications Amlodipine (Amlodipine) 5 Mg Tablet 5 MG PO TID (Reported) Benazepril (Benazepril) 10 Mg Tablet 10 MG PO TID (Reported) Bisoprolol Fumarate (Bisoprolol Fumarate) 5 Mg Tablet 5 MG PO QAM (Reported) Cefuroxime Axetil (Cefuroxime) 500 Mg Tablet 500 MG PO BIDWM (Reported) Clonidine (Clonidine) 0.1 Mg Tablet 0.3 MG PO HS (Reported) Phenazopyridine (Azo Standard) 97.5 Mg Tablet 195 MG PO Q2H (Reported) TAKING Q2H SCHEDULED FOR PAIN W/ URINATION Pramipexole Dihydrochloride (Mirapex) 0.125 Mg Tablet 0.375 MG PO HS (Reported) Zolpidem ER (Zolpidem ER) 12.5 Mg Tablet 12.5 MG PO HS (Reported) SCHEDULED As needed Carisoprodol (Carisoprodol) 350 Mg Tablet 350 MG PO HS PRN PRN Insomnia ( Reported) Dexamethasone Liquid (Dexamethasone Liquid) 0.5 Mg/5 Ml Elixir 0.5 MG PO DAILY PRN PRN MOUTH SORES (Reported) SWISH AND SPIT Doxepin (Doxepin) 25 Mg Capsule 25 MG PO HS PRN PRN For Insomnia (Reported) Hydrocodone-Acetaminophen 5-325 mg (Hydrocodone-Acetaminophen 5-325 mg) 1 Each Tablet 1 TABLET PO Q4H PRN PRN For Pain (Reported) Metronidazole (Metronidazole Gel) 45 Gm Gel..gram. 1 APPLIC TOP DAILY PRN PRN ROSACEA (Reported) TO TIP OF NOSE Followup Plan Disposition: Patient left AGAINST MEDICAL ADVICE Time spent 65 minutes Jesus Manuel Packer MD September 14, 2016 11:27
--- NOTE | 2016-09-15 11:45 | PATH ---
SURGICAL PATHOLOGY Attending Physician:Piper Pichardo CASE STATUS: Signed Out PATIENT NAME: CAMMY ROMEO PID: [id number] : 1945 DATE COLLECTED:09/14/2016 17:02 SPECIMEN: 1: Colon, Biopsy 2: Colon, Biopsy 3: Colon, Biopsy 4: Colon, Biopsy CLINICAL HISTORY: 1. ASCENDING COLON BX 2. TRANSVERSE COLON BX 3. DESCENDING COLON BX 4. 40 CM BIOPSY FINAL DIAGNOSIS: 1.ASCENDING COLON BIOPSY: BENIGN COLONIC MUCOSA WITH FOCAL EROSION. Negative for granulomas. Negative for dysplasia and malignancy. 2.TRANSVERSE COLON BIOPSY: BENIGN COLONIC MUCOSA WITH FOCAL EROSION. Negative for granulomas. Negative for dysplasia and malignancy. 3.DESCENDING COLON BIOPSY: BENIGN COLONIC MUCOSA WITH FOCAL EROSION. Negative for granulomas. Negative for dysplasia and malignancy. 4.40 CM BIOPSY: BENIGN COLONIC MUCOSA WITH MILD VASCULAR CONGESTION AND EDEMA. Negative for granulomas. Negative for dysplasia and malignancy. ICD10 code K52.9 NOTE: These biopsies show scattered foci of superficial mucosal injury with no associated chronic inflammatory infiltrate or gland architecture distortion. No crypt abscesses or granulomas are seen. This pattern of mucosal injury is most suggestive of medication toxicity (e.g., NSAIDS). Ischemic injury and IBD are less likely. Clinical correlation recommended. GROSS DESCRIPTION: The specimen is received in four formalin filled containers labeled with the patient's name. 1). The specimen is sublabeled "ascending colon" and consists of 4 portions of tissue which aggregate to 0.3 x 0.3 x 0.2 CM. The specimen is entirely submitted in cassette 1A. 2). The specimen is sublabeled "transverse colon" and consists of 3 portions of tissue which aggregate to 0.3 x 0.2 x 0.2 CM. The specimen is entirely submitted in cassette 2A. 3). The specimen is sublabeled "descending colon" and consists of 3 portions of tissue which aggregate to 0.2 x 0.2 x 0.2 CM. The specimen is entirely submitted in cassette 3A. 4). The specimen is sublabeled "40 CM" and consists of 2 portions of tissue which aggregate to 0.2 x 0.2 x 0.2 CM. The specimen is entirely submitted in cassette 4A. 09/14/2016 DAC MICRO DESCRIPTION: See diagnosis. ICD-9 CODES: CPT CODES: 1: 55636 2: 16889 3: 73529 4: 00273 Electronically Signed Out Shelbi Reza MD [facility] [address], [place] [address] Technical component performed at [facility], [address], [place], [address]
== END 2016-09-13 17:36 | disposition left against medical advice (07) | DRG 392 ==
LOC: SED 16:00 → OSC 20:16
PROVIDERS: ADMIT Internal Medicine; ATTEND Internal Medicine
PROC: 0DBL8ZX Excision of Transverse Colon, Via Natural or Artificial Opening Endoscopic, Diagnostic (ICD-10-PCS; 2016-09-13)
PROC: 0DBM8ZX Excision of Descending Colon, Via Natural or Artificial Opening Endoscopic, Diagnostic (ICD-10-PCS; 2016-09-13)
PROC: 0DBK8ZX Excision of Ascending Colon, Via Natural or Artificial Opening Endoscopic, Diagnostic (ICD-10-PCS; principal; 2016-09-13 15:00)
DX: K57.30 Diverticulosis of large intestine without perforation or abscess without bleeding (principal); N32.1 Vesicointestinal fistula; K63.3 Ulcer of intestine; N39.0 Urinary tract infection, site not specified; I10 Essential (primary) hypertension; G25.81 Restless legs syndrome; G47.00 Insomnia, unspecified; Z87.891 Personal history of nicotine dependence; L71.9 Rosacea, unspecified; B96.4 Proteus (mirabilis) (morganii) as the cause of diseases classified elsewhere; B96.20 Unspecified Escherichia coli [E. coli] as the cause of diseases classified elsewhere; G89.29 Other chronic pain